=== PATIENT | male | born 1985 | race Caucasian/White ===

== ENCOUNTER 2016-11-04 04:02 | Emergency (ER) | payer SELFPAY ==
[2016-11-04 07:23] VITALS: BP 130/69
== END 2016-11-04 07:20 | disposition home or self-care (01) ==
LOC: ED 04:02
DX: I86.1 Scrotal varices (principal)
CPT/HCPCS: 87491; 87591; J0696; J1885; Q0092

== ENCOUNTER 2018-08-12 12:53 | Emergency (ER) | payer MEDICAID ==
[~2018-08-12] VITALS: Ht 165.1 cm; Wt 74.4 kg
[2018-08-12 13:03] VITALS: BP 126/118; Ht 165.1 cm; Wt 74.4 kg
== END 2018-08-12 13:48 | disposition home or self-care (01) ==
LOC: ED 12:53
DX: S05.02XA Injury of conjunctiva and corneal abrasion without foreign body, left eye, initial encounter (principal); F17.210 Nicotine dependence, cigarettes, uncomplicated; W20.8XXA Other cause of strike by thrown, projected or falling object, initial encounter; Y93.89 Activity, other specified; Y92.59 Other trade areas as the place of occurrence of the external cause; Y99.8 Other external cause status
CPT/HCPCS: 99406